=== PATIENT | female | born 1940 | race Caucasian/White ===

== ENCOUNTER 2018-04-01 06:36 | Day surgery (SDC) | payer MEDICARE, OTHER ==
[~2018-04-01 06:36] MED LIST: Acetaminophen 325 MG Tab PO SCH; Lactated Ringers 1,000 ML IV SCH; Lidocaine 1%/Sod Bicarbonate in NS 8.4% 1 ML Syringe IDERM PRN; Pregabalin 25 MG Cap PO SCH; Sodium Chloride 0.9% 10 ML Syringe FLUSH PRN; oxyCODONE ER 10 MG TAB.ER PO SCH
[2018-04-01] MEDS ORDERED: Vancomycin 1 GM SDV ONE (07:55)
[2018-04-01] MEDS ORDERED: Propofol 200 MG/20 ML SDV ONE (07:58)
[2018-04-01] MEDS ORDERED: fentaNYL 100 MCG/2 ML SDV ONE (07:59)
[2018-04-01] MEDS ORDERED: ceFAZolin 1 GM Vial ONE ×2 (08:03→08:21)
[2018-04-01] MEDS ORDERED: Lidocaine 1% 4 ML ONE (08:03)
[2018-04-01] MEDS ORDERED: Dexamethasone 4 MG/ML SDV ONE (08:03)
[2018-04-01] MEDS ORDERED: Ondansetron 4 MG/2 ML SDV ONE (08:03)
[2018-04-01] MEDS ORDERED: Iodine/Sodium Iodide 2% Tincture 30 ML Bottle ONE (08:21)
[2018-04-01] MEDS ORDERED: Bupivacaine 0.25% 30 ML SDV ONE ×2 (08:22)
[2018-04-01] MEDS ORDERED: EPINEPHrine 1 MG/ML SDV ONE (08:24)
[2018-04-01] MEDS ORDERED: Ropivacaine 0.5% 5 MG/ML 30 ML SDV ONE (08:24)
[2018-04-01] MEDS ORDERED: ePHEDrine/Normal Saline 25 MG/5 ML Syringe ONE ×2 (09:11→09:51)
[2018-04-01] MEDS: Iodine/Sodium Iodide 2% Tincture 30 ML Bottle ONE ×2 (09:21→09:48)
[2018-04-01] MEDS: Bupivacaine 0.25% 30 ML SDV ONE ×2 (09:21→09:55)
[2018-04-01] MEDS: ceFAZolin 1 GM Vial ONE ×2 (09:21→09:51)
[2018-04-01] MEDS: Morphine 8 MG, EPINEPHrine 0.3 MG, Cefuroxime 750 MG, Ketorolac 30 MG, Sodium Chloride ... ONE ×10 (09:22→09:54)
[2018-04-01] MEDS: Vancomycin 1 GM SDV ONE ×2 (09:23→09:57)
[2018-04-01] MEDS ORDERED: diphenhydrAMINE 50 MG/ML SDV IVPUSH PRN (10:05)
[2018-04-01] MEDS ORDERED: Ondansetron 4 MG/2 ML SDV IVPUSH PRN ×2 (10:05→10:30)
[2018-04-01] MEDS ORDERED: fentaNYL 100 MCG/2 ML SDV IVPUSH PRN (10:05)
[2018-04-01] MEDS: Triamcinolone Acetonide 40 MG/ML 1 ML MDV ONE ×2 (10:24→10:26)
[2018-04-01] MEDS ORDERED: Sennosides 8.6 MG Tab PO PRN (10:30)
[2018-04-01] MEDS ORDERED: Magnesium Hydroxide 400 MG/5 ML Susp 30 ML Cup PO PRN (10:30)
[2018-04-01] MEDS ORDERED: Ketorolac 15 MG/ML SDV IVPUSH PRN (10:30)
[2018-04-01] MEDS ORDERED: Bisacodyl 5 MG Tab PO PRN (10:30)
[2018-04-01] MEDS ORDERED: Cyclobenzaprine 10 MG Tab PO PRN (10:30)
[2018-04-01] MEDS ORDERED: Naloxone 0.4 MG/ML SDV IVPUSH PRN (10:30)
[2018-04-01] MEDS ORDERED: Morphine 2 MG/ML Syringe IVPUSH PRN (10:30)
--- NOTE | 2018-04-01 10:39 | PCM.POSTAN ---
POST ANESTHESIA ASSESSMENT - MENTAL STATUS Mental Status: Alert, Oriented - VITAL SIGNS Pulse Rate: 88 SaO2: 97 Resp Rate: 13 Blood Pressure: 116/58 Temperature: 36.6 C - RESPIRATORY Respiratory Status: Respiratory Rate WNL, Airway Patent, O2 Saturation Stable, Supplemental Oxygen - CARDIOVASCULAR CV Status: Pulse Rate WNL, Blood Pressure Stable - GASTROINTESTINAL GI Status: No Symptoms - PAIN Pain Score: 0 - POST OP HYDRATION Hydration Status: Adequate & Stable
--- NOTE | 2018-04-01 11:39 | PCM.SN ---
- Free Text/Narrative Note: Nancy is a 78 yo female patient of Dr. Shine who is post-operative day 0 of R TKA. Hospital medicine was consulted for post-operative medical care. At this time she is stable. Pain is controlled. She denies any chest pain, shortness of breath, palpitations, nausea, or vomiting. She carries a history of: heterozygous Factor V mutation, OA, GERD, HTN, varicose veins, osteopenia. She never smoked. She is a full code. Her PCP is KEVIN Bernardo.
--- NOTE | 2018-04-01 12:27 | CR ---
Right knee: AP and lateral views of the right knee were obtained. Comparison: Previous right knee radiographic study of 01/26/18. Knee prosthesis is seen. Components are aligned. Soft tissue air is noted from the surgical procedure. Vascular calcification is noted. Bony structures are osteopenic. Impression: 1. Satisfactory postoperative radiographic appearance of recently placed right knee prosthesis. Diagnostic code #2
--- NOTE | 2018-04-01 12:37 | PCM.OPNOTE ---
- General Post-Op/Procedure Note Date of Surgery/Procedure: 04/01/18 Operative Procedure(s): right total knee arthroplasty with left knee corticosteroid injection Pre Op Diagnosis: bilateral knee osteoarthritis Post-Op Diagnosis: Same Anesthesia Technique: Local, MAC, Spinal Primary Surgeon: Eugene Shine Anesthesia Provider: Alexis Baker Cadd Instructor: Heaven Miranda Cadd Instructor: Hailee Ferrell EBL in mLs: 10 Complications: None Condition: Good Free Text/Narrative:: Intake & Output 03/31/18 04/01/18 04/01/18 22:59 06:59 14:59 Intake Total 250 Balance 250 size 4 femur and tibia 13mm poly [id number]
[2018-04-01] MEDS: Acetaminophen/oxyCODONE 325-5 MG Tab PO PRN ×3 (13:46→23:30)
[2018-04-01] MEDS: ceFAZolin 2 GM in Premix Bag 1 BAG IV SCH ×2 (16:13→23:30)
[2018-04-01] MEDS: Docusate Sodium 100 MG Cap PO SCH (20:11)
[2018-04-02] MEDS: Acetaminophen/oxyCODONE 325-5 MG Tab PO PRN ×2 (05:58→11:04)
--- NOTE | 2018-04-02 06:17 | PCM.SN ---
- Free Text/Narrative Note: In to see Nancy this AM. She is sitting on the edge of bed eating breakfast. She is post-operative day 1 of right TKA with left knee steroid injection. She reports her pain is well controlled and she has been thrilled with her range of motion. She worked with PT/OT and they have cleared her for discharge home. She denies any chest pain, nausea, vomiting, palpitations, shortness of breath, dizziness, or headache. She is off of oxygen and has been urinating. No nursing concerns. Vital signs are reviewed and are stable. Physical exam is unremarkable with clear lung sounds, normal S1 and S2, regular rate and rhythm, soft abdomen that is nontender, and a bandage on the right leg that is intact and dry. She is neurovascularly intact with 2+ pulses noted in all extremities. Family is at bedside and neither the patient nor the family have any concerns. She has been utilizing her incentive spirometry and encouraged to continue this at home until she is more ambulatory. Past medical history is reviewed. Labs are reviewed and creatinine is noted to be 1.1 with a GFR of 48. Baseline GFR is >[address] Guzman as she is eating and drinking fine. He has no concerns with this. Will encourage to stay hydrated. Hemoglobin preop was 13.7 and today is 11.8. She appears to be doing well and no concerns are noted. She will be discharged home today pending primary team and PT/OT agreement.
[2018-04-02] MEDS: ceFAZolin 2 GM in Premix Bag 1 BAG IV SCH (08:53)
[2018-04-02] MEDS: Docusate Sodium 100 MG Cap PO SCH (08:55)
[2018-04-02] MEDS ORDERED: Cholecalciferol (Vitamin D3) 5,000 UNIT Tab PO SCH (09:00)
[2018-04-02] MEDS ORDERED: Apixaban 5 MG Tab PO SCH (09:00)
[2018-04-02] MEDS ORDERED: TRIAMCINOLONE ACETONIDE NASBOTH SCH (09:00)
[2018-04-02] MEDS ORDERED: Losartan 100 MG Tab PO SCH (09:00)
[2018-04-02] MEDS ORDERED: Pantoprazole 40 MG Tab.CR PO SCH (09:00)
--- NOTE | 2018-04-02 10:46 | PCM.PREANE ---
Preanesthetic Assessment - Procedure Proposed Procedure: Right TKR - Anesthesia/Transfusion/Family Hx Anesthesia History: Prior Anesthesia Without Reaction Family History of Anesthesia Reaction: No Transfusion History: No Prior Transfusion(s) Additional History: factor 5 leiden deficiency, hx blood clots in legs 1968-. - Review of Systems General: No Symptoms Pulmonary: Shortness of Breath (with walking) Cardiovascular: Other (HTN) Gastrointestinal: Other (GERD) Neurological: No Symptoms Other: Reports: None - Physical Assessment NPO Status Date: 03/31/18 NPO Status Time: 19:00 Pulse: 77 O2 Sat by Pulse Oximetry: 92 Respiratory Rate: 18 Blood Pressure: 137/61 Temperature: 36.7 C Vital Signs: Last Vital Signs Temp 36.7 C 04/02/18 06:03 Pulse 77 04/02/18 06:03 Resp 18 04/02/18 06:03 BP 137/61 04/02/18 08:54 Pulse Ox 92 L 04/02/18 06:03 Height: 1.65 m Weight: 99.337 kg ASA Class: 2 Mental Status: Alert & Oriented x3 Airway Class: Mallampati = 1 Dentition: Reports: Normal Dentition Thyro-Mental Finger Breadths: 3 Mouth Opening Finger Breadths: 3 ROM/Head Extension: Full Lungs: Clear to Auscultation, Normal Respiratory Effort Cardiovascular: Regular Rate, Regular Rhythm - Lab Values: Laboratory Last Values WBC 14.19 K/mm3 (3.98-10.04) H 04/02/18 05:44 RBC 4.01 M/mm3 (3.98-5.22) 04/02/18 05:44 Hgb 11.8 gm/L (11.2-15.7) 04/02/18 05:44 Hct 36.5 % (34.1-44.9) 04/02/18 05:44 MCV 91.0 fl (79.4-94.8) 04/02/18 05:44 MCH 29.4 pg (25.6-32.2) 04/02/18 05:44 MCHC 32.3 g/dl (32.2-35.5) 04/02/18 05:44 RDW Std Deviation 46.4 fL (36.4-46.3) H 04/02/18 05:44 Plt Count 205 K/mm3 (182-369) 04/02/18 05:44 MPV 10.9 fl (9.4-12.3) 04/02/18 05:44 Sodium 131 mEq/L (136-145) L 04/02/18 05:44 Potassium 5.0 mEq/L (3.5-5.1) 04/02/18 05:44 Chloride 99 mEq/L (98-107) 04/02/18 05:44 Carbon Dioxide 22 mEq/L (21-32) 04/02/18 05:44 Anion Gap 15.0 (5-15) 04/02/18 05:44 BUN 24 mg/dL (7-18) H 04/02/18 05:44 Creatinine 1.1 mg/dL (0.55-1.02) H 04/02/18 05:44 Est Cr Clr Drug Dosing 37.93 mL/min 04/02/18 05:44 Estimated GFR (MDRD) 48 mL/min (>60) 04/02/18 05:44 BUN/Creatinine Ratio 21.8 (14-18) H 04/02/18 05:44 Glucose 155 mg/dL (83-115) H 04/02/18 05:44 Calcium 9.4 mg/dL (8.5-10.1) 04/02/18 05:44 Total Bilirubin 0.3 mg/dL (0.2-1.0) 04/02/18 05:44 AST 16 U/L (15-37) 04/02/18 05:44 ALT 19 U/L (14-59) 04/02/18 05:44 Alkaline Phosphatase 52 U/L (46-116) 04/02/18 05:44 Total Protein 7.0 g/dl (6.4-8.2) 04/02/18 05:44 Albumin 3.4 g/dl (3.4-5.0) 04/02/18 05:44 Globulin 3.6 gm/dL 04/02/18 05:44 Albumin/Globulin Ratio 0.9 (1-2) L 04/02/18 05:44 - Allergies Allergies/Adverse Reactions: Allergies Allergy/AdvReac Type Severity Reaction Status Date / Time No Known Allergies Allergy Verified 03/31/18 12:09 - Blood Blood Available: No Product(s) Available: None - Anesthesia Plan Pre-Op Medication Ordered: None - Acknowledgements Anesthesia Type Planned: Spinal, Regional Block (spinal with post-op right adductor canal block) Pt an Appropriate Candidate for the Planned Anesthesia: Yes Alternatives and Risks of Anesthesia Discussed w Pt/Guardian: Yes Pt/Guardian Understands and Agrees with Anesthesia Plan: Yes PreAnesthesia Questionnaire HEENT History: Reports: Cataract, Impaired Vision, Other (See Below) Other HEENT History: postnasal drip, wears glasses, has hearing aids Cardiovascular History: Reports: Blood Clots/VTE/DVT, Hypertension, Other (See Below) Other Cardiovascular History: varicose veins Respiratory History: Reports: None Gastrointestinal History: Reports: GERD Genitourinary History: Reports: None [employer] History: Reports: Musculoskeletal History: Reports: Arthritis, Other (See Below) Other Musculoskeletal History: recent history of falls, lower leg bone disorder , knee pain Neurological History: Reports: None Psychiatric History: Reports: None Endocrine/Metabolic History: Reports: Obesity/BMI 30+ Other Hematologic History: leiden factor V Immunologic History: Reports: None Oncologic (Cancer) History: Reports: None Dermatologic History: Reports: Other (See Below) Other Dermatologic History: phlebitis to leg - Past Surgical History Head Surgeries/Procedures: Reports: None Cardiovascular Surgical History: Reports: None Respiratory Surgical History: Reports: None GI Surgical History: Reports: None Female Surgical History: Reports: D&C Male Surgical History: Reports: None Endocrine Surgical History: Reports: None Neurological Surgical History: Reports: None Musculoskeletal Surgical History: Reports: None Oncologic Surgical History: Reports: None - SUBSTANCE USE Smoking Status *Q: Never Smoker Recreational Drug Use History: No - HOME MEDS Home Medications: Home Meds Cholecalciferol (Vitamin D3) [Vitamin D3] 5,000 units PO DAILY 03/31/18 [History ] Losartan [Cozaar] 100 mg PO DAILY 03/31/18 [History] Omeprazole 20 mg PO DAILY 03/31/18 [History] Triamcinolone Acetonide [Nasacort] 1 dose NASBOTH DAILY 03/31/18 [History] Acetaminophen [Tylenol] 650 g PO Q4H PRN #0 04/02/18 [Rx] Acetaminophen/oxyCODONE [Percocet 325-5 MG] 1 - 2 tab PO Q6H PRN #60 tablet [Rx] Apixaban [Eliquis] 2.5 mg PO BID #60 tablet 04/02/18 [Rx] Bisacodyl [Dulcolax] 5 mg PO DAILY PRN tablet 04/02/18 [Rx] Cyclobenzaprine [Flexeril] 10 mg PO TID PRN #40 tablet 04/02/18 [Rx] Docusate Sodium [Colace] 100 mg PO BID cap 04/02/18 [Rx] Magnesium Hydroxide [Milk of Magnesia] 30 ml PO BID PRN cup 04/02/18 [Rx] Sennosides [Senna] 8.6 mg PO BID PRN tablet 04/02/18 [Rx] - CURRENT (IN HOUSE) MEDS Current Meds: Current Medications Apixaban (Eliquis) 2.[address] [facility] Last Admin: 04/02/18 08:56 Dose: 2.5 mg Bisacodyl (Dulcolax) 5 mg PO DAILY PRN PRN Reason: Constipation Cholecalciferol (Vitamin D3) 5,[address] [facility] Last Admin: 04/02/18 08:53 Dose: 5,000 unit Cyclobenzaprine HCl (Flexeril) 10 mg PO TID PRN PRN Reason: Spasms Docusate Sodium (Colace) [address] [facility] Last Admin: 04/02/18 08:55 Dose: 100 mg Ketorolac Tromethamine (Toradol) 15 mg IVPUSH Q6H PRN PRN Reason: Pain Losartan Potassium (Cozaar) [address] [facility] Last Admin: 04/02/18 08:54 Dose: 100 mg Magnesium Hydroxide (Milk Of Magnesia) 30 ml PO BID PRN PRN Reason: Constipation Morphine Sulfate (Morphine) 2 mg IVPUSH Q2H PRN PRN Reason: Breakthrough Pain Naloxone HCl (Narcan) 0.1 mg IVPUSH Q5M PRN PRN Reason: Oversedation Ondansetron HCl (Zofran) 4 mg IVPUSH Q6H PRN PRN Reason: Nausea/Vomiting Oxycodone/Acetaminophen (Percocet 325-5 Mg) 1 - 2 tab PO Q4H PRN PRN Reason: Pain Last Admin: 04/02/18 05:58 Dose: 2 tab Pantoprazole Sodium (Protonix) [address] [facility] Last Admin: 04/02/18 08:55 Dose: 40 mg Triamcinolone Acetonide [Nasacort] 1 Dose [address] [facility] Last Admin: 04/02/18 08:56 Dose: Not Given Senna (Senna) 8.6 mg PO BID PRN PRN Reason: Constipation Discontinued Medications Acetaminophen (Tylenol) 975 mg PO ONETIME TOR Stop: 04/01/18 18:00 Last Admin: 04/01/18 07:00 Dose: 975 mg Bupivacaine HCl (Marcaine 0.25%) Confirm Administered Dose 30 ml .ROUTE .STK- MED ONE Stop: 04/01/18 07:57 Last Admin: 04/01/18 09:55 Dose: 30 ml Bupivacaine HCl (Marcaine 0.25%) Confirm Administered Dose 30 ml .ROUTE .STK- MED ONE Stop: 04/01/18 08:23 Bupivacaine HCl (Marcaine 0.25%) Confirm Administered Dose 30 ml .ROUTE .STK- MED ONE Stop: 04/01/18 08:23 Cefazolin Sodium (Ancef) Confirm Administered Dose 2 gm .ROUTE .STK-MED ONE Stop: 04/01/18 07:56 Last Admin: 04/01/18 09:51 Dose: 2 gm Cefazolin Sodium (Ancef) Confirm Administered Dose 2 gm .ROUTE .STK-MED ONE Stop: 04/01/18 08:04 Cefazolin Sodium (Ancef) Confirm Administered Dose 2 gm .ROUTE .STK-MED ONE Stop: 04/01/18 08:22 Morphine Sulfate 8 mg/Epinephrine HCl 0.3 mg/Cefuroxime Sodium 750 mg/Ketorolac Tromethamine 30 mg/Sodium Chloride 27.9 ml 0 mg .XX ONETIME ONE Stop: 04/01/18 08:31 Last Admin: 04/01/18 09:54 Dose: 788.3 mg Dexamethasone (Dexamethasone) Confirm Administered Dose 8 mg .ROUTE .STK-MED ONE Stop: 04/01/18 08:04 Diphenhydramine HCl (Benadryl) 25 mg IVPUSH Q6H PRN PRN Reason: Pruritis Stop: 04/01/18 13:00 Ephedrine Sulfate (Ephedrine In Ns) Confirm Administered Dose 25 mg .ROUTE .STK- MED ONE Stop: 04/01/18 09:12 Ephedrine Sulfate (Ephedrine In Ns) Confirm Administered Dose 25 mg .ROUTE .STK- MED ONE Stop: 04/01/18 09:52 Epinephrine HCl (Adrenalin) Confirm Administered Dose 1 mg .ROUTE .STK-MED ONE Stop: 04/01/18 08:25 Fentanyl (Sublimaze) Confirm Administered Dose 100 mcg .ROUTE .STK-MED ONE Stop: 04/01/18 08:00 Fentanyl (Sublimaze) 50 mcg IVPUSH Q5M PRN PRN Reason: Pain Stop: 04/01/18 13:00 Lactated Ringer's (Ringers, Lactated) 1,000 mls @ 125 mls/hr IV ASDIRECTED [facility] Stop: 04/01/18 23:00 Last Admin: 04/01/18 07:20 Dose: 125 mls/hr Cefazolin Sodium/Dextrose 2 gm (/ Premix) 50 mls @ 100 mls/hr IV Q8H [facility] Stop: 04/02/18 08:59 Last Admin: 04/02/18 08:53 Dose: 100 mls/hr Lidocaine HCl (Xylocaine-Mpf 1%) Confirm Administered Dose 4 mls @ as directed .ROUTE .STK-MED ONE Stop: 04/01/18 08:04 Iodine (Iodine 2% Mild Tincture) Confirm Administered Dose 30 ml .ROUTE .STK- MED ONE Stop: 04/01/18 07:57 Last Admin: 04/01/18 09:48 Dose: 18 ml Iodine (Iodine 2% Mild Tincture) Confirm Administered Dose 30 ml .ROUTE .STK- MED ONE Stop: 04/01/18 08:22 Lidocaine/Sodium Bicarbonate (Buffered Lidocaine 1% In Ns 8.4%) 0.25 ml IDERM ONETIME PRN PRN Reason: Prior to IV Start Stop: 04/01/18 18:00 Ondansetron HCl (Zofran) Confirm Administered Dose 4 mg .ROUTE .STK-MED ONE Stop: 04/01/18 08:04 Ondansetron HCl (Zofran) 4 mg IVPUSH ONETIME PRN PRN Reason: Nausea/Vomiting Stop: 04/01/18 13:00 Oxycodone HCl (Oxycontin) [address] [facility] Stop: 04/01/18 18:00 Last Admin: 04/01/18 06:59 Dose: 10 mg Pregabalin (Lyrica) [address] [facility] Stop: 04/01/18 18:00 Last Admin: 04/01/18 06:59 Dose: 50 mg Propofol (Diprivan 20 Ml) Confirm Administered Dose 600 mg .ROUTE .STK-MED ONE Stop: 04/01/18 07:59 Ropivacaine (Naropin 0.5%) Confirm Administered Dose 30 ml .ROUTE .STK-MED ONE Stop: 04/01/18 08:25 Sodium Chloride (Saline Flush) 10 ml FLUSH ASDIRECTED PRN PRN Reason: Keep Vein Open Stop: 04/01/18 18:00 Tranexamic Acid (Cyklokapron) Confirm Administered Dose 1,000 mg .ROUTE .ST- MED ONE Stop: 04/01/18 07:56 Last Admin: 04/01/18 09:56 Dose: 1,000 mg Tranexamic Acid (Cyklokapron) Confirm Administered Dose 1,000 mg .ROUTE .STK- MED ONE Stop: 04/01/18 08:22 Triamcinolone Acetonide (Kenalog-40) Confirm Administered Dose 80 mg .ROUTE .STK -MED ONE Stop: 04/01/18 08:22 Vancomycin HCl (Vancomycin) Confirm Administered Dose 1 gm .ROUTE .STK-MED ONE Stop: 04/01/18 07:56 Vancomycin HCl (Vancomycin) Confirm Administered Dose 1 gm .ROUTE .STK-MED ONE Stop: 04/01/18 08:22 Last Admin: 04/01/18 09:57 Dose: 1 gm
--- NOTE | 2018-04-02 11:12 | PCM48HPAN ---
Post Anesthesia Note - EVALUATION WITHIN 48HRS OF ANESTHETIC Vital Signs in Normal Range: Yes Patient Participated in Evaluation: Yes Respiratory Function Stable: Yes Airway Patent: Yes Cardiovascular Function Stable: Yes Hydration Status Stable: Yes Pain Control Satisfactory: Yes Nausea and Vomiting Control Satisfactory: Yes Mental Status Recovered: Yes
--- NOTE | 2018-04-02 12:44 | PCM.SURGPN ---
- General Info Date of Service: 04/02/18 POD#: 1 Functional Status: Reports: Pain Controlled, Tolerating Diet, Ambulating, Urinating, Incentive Spirometry, Other (The pt states she would like to return to her home. The family has discussed discharge options, including discharge to [facility], with social sciences chair and the pt has chosen to d/c to home.) - Patient Data Vitals - Most Recent: Last Vital Signs Temp 98.1 F 04/02/18 10:46 Pulse 77 04/02/18 10:46 Resp 18 04/02/18 10:46 BP 137/61 04/02/18 10:46 Pulse Ox 92 L 04/02/18 10:46 Weight - Most Recent: 219 lb I&O - Last 24 Hours: Intake & Output 04/01/18 04/02/18 04/02/18 22:59 06:59 14:59 Intake Total 120 108 Balance 120 108 Lab Results Last 24 Hrs: Laboratory Results - last 24 hr 04/02/18 04/02/18 Range/Units 05:44 05:44 WBC 14.19 H (3.98-10.04) K/mm3 RBC 4.01 (3.98-5.22) M/mm3 Hgb 11.8 (11.2-15.7) gm/L Hct 36.5 (34.1-44.9) % MCV 91.0 (79.4-94.8) fl MCH 29.4 (25.6-32.2) pg MCHC 32.3 (32.2-35.5) g/dl RDW Std Deviation 46.4 H (36.4-46.3) fL Plt Count 205 (182-369) K/mm3 MPV 10.9 (9.4-12.3) fl Sodium 131 L (136-145) mEq/L Potassium 5.0 (3.5-5.1) mEq/L Chloride 99 (98-107) mEq/L Carbon Dioxide 22 (21-32) mEq/L Anion Gap 15.0 (5-15) BUN 24 H (7-18) mg/dL Creatinine 1.1 H (0.55-1.02) mg/dL Est Cr Clr Drug Dosing 37.93 mL/min Estimated GFR (MDRD) 48 (>60) mL/min BUN/Creatinine Ratio 21.8 H (14-18) Glucose 155 H (83-115) mg/dL Calcium 9.4 (8.5-10.1) mg/dL Total Bilirubin 0.3 (0.2-1.0) mg/dL AST 16 (15-37) U/L ALT 19 (14-59) U/L Alkaline Phosphatase 52 (46-116) U/L Total Protein 7.0 (6.4-8.2) g/dl Albumin 3.4 (3.4-5.0) g/dl Globulin 3.6 gm/dL Albumin/Globulin Ratio 0.9 L (1-2) Med Orders - Current: Current Medications Apixaban (Eliquis) 2.5 mg PO BID [facility] Last Admin: 04/02/18 08:56 Dose: 2.5 mg Bisacodyl (Dulcolax) 5 mg PO DAILY PRN PRN Reason: Constipation Cholecalciferol (Vitamin D3) 5,000 unit PO DAILY [facility] Last Admin: 04/02/18 08:53 Dose: 5,000 unit Cyclobenzaprine HCl (Flexeril) 10 mg PO TID PRN PRN Reason: Spasms Docusate Sodium (Colace) 100 mg PO BID [facility] Last Admin: 04/02/18 08:55 Dose: 100 mg Ketorolac Tromethamine (Toradol) 15 mg IVPUSH Q6H PRN PRN Reason: Pain Losartan Potassium (Cozaar) 100 mg PO DAILY [facility] Last Admin: 04/02/18 08:54 Dose: 100 mg Magnesium Hydroxide (Milk Of Magnesia) 30 ml PO BID PRN PRN Reason: Constipation Morphine Sulfate (Morphine) 2 mg IVPUSH Q2H PRN PRN Reason: Breakthrough Pain Naloxone HCl (Narcan) 0.1 mg IVPUSH Q5M PRN PRN Reason: Oversedation Ondansetron HCl (Zofran) 4 mg IVPUSH Q6H PRN PRN Reason: Nausea/Vomiting Oxycodone/Acetaminophen (Percocet 325-5 Mg) 1 - 2 tab PO Q4H PRN PRN Reason: Pain Last Admin: 04/02/18 11:04 Dose: 2 tab Pantoprazole Sodium (Protonix) 40 mg PO DAILY [facility] Last Admin: 04/02/18 08:55 Dose: 40 mg Triamcinolone Acetonide [Nasacort] 1 Dose 0 each NASBOTH DAILY [facility] Last Admin: 04/02/18 08:56 Dose: Not Given Senna (Senna) 8.6 mg PO BID PRN PRN Reason: Constipation Discontinued Medications Acetaminophen (Tylenol) 975 mg PO ONETIME [facility] Stop: 04/01/18 18:00 Last Admin: 04/01/18 07:00 Dose: 975 mg Bupivacaine HCl (Marcaine 0.25%) Confirm Administered Dose 30 ml .ROUTE .STK- MED ONE Stop: 04/01/18 07:57 Last Admin: 04/01/18 09:55 Dose: 30 ml Bupivacaine HCl (Marcaine 0.25%) Confirm Administered Dose 30 ml .ROUTE .STK- MED ONE Stop: 04/01/18 08:23 Bupivacaine HCl (Marcaine 0.25%) Confirm Administered Dose 30 ml .ROUTE .STK- MED ONE Stop: 04/01/18 08:23 Cefazolin Sodium (Ancef) Confirm Administered Dose 2 gm .ROUTE .STK-MED ONE Stop: 04/01/18 07:56 Last Admin: 04/01/18 09:51 Dose: 2 gm Cefazolin Sodium (Ancef) Confirm Administered Dose 2 gm .ROUTE .STK-MED ONE Stop: 04/01/18 08:04 Cefazolin Sodium (Ancef) Confirm Administered Dose 2 gm .ROUTE .STK-MED ONE Stop: 04/01/18 08:22 Morphine Sulfate 8 mg/Epinephrine HCl 0.3 mg/Cefuroxime Sodium 750 mg/Ketorolac Tromethamine 30 mg/Sodium Chloride 27.9 ml 0 mg .XX ONETIME ONE Stop: 04/01/18 08:31 Last Admin: 04/01/18 09:54 Dose: 788.3 mg Dexamethasone (Dexamethasone) Confirm Administered Dose 8 mg .ROUTE .STK-MED ONE Stop: 04/01/18 08:04 Diphenhydramine HCl (Benadryl) 25 mg IVPUSH Q6H PRN PRN Reason: Pruritis Stop: 04/01/18 13:00 Ephedrine Sulfate (Ephedrine In Ns) Confirm Administered Dose 25 mg .ROUTE .STK- MED ONE Stop: 04/01/18 09:12 Ephedrine Sulfate (Ephedrine In Ns) Confirm Administered Dose 25 mg .ROUTE .STK- MED ONE Stop: 04/01/18 09:52 Epinephrine HCl (Adrenalin) Confirm Administered Dose 1 mg .ROUTE .STK-MED ONE Stop: 04/01/18 08:25 Fentanyl (Sublimaze) Confirm Administered Dose 100 mcg .ROUTE .STK-MED ONE Stop: 04/01/18 08:00 Fentanyl (Sublimaze) 50 mcg IVPUSH Q5M PRN PRN Reason: Pain Stop: 04/01/18 13:00 Lactated Ringer's (Ringers, Lactated) 1,000 mls @ 125 mls/hr IV ASDIRECTED [facility] Stop: 04/01/18 23:00 Last Admin: 04/01/18 07:20 Dose: 125 mls/hr Cefazolin Sodium/Dextrose 2 gm (/ Premix) 50 mls @ 100 mls/hr IV Q8H [facility] Stop: 04/02/18 08:59 Last Admin: 04/02/18 08:53 Dose: 100 mls/hr Lidocaine HCl (Xylocaine-Mpf 1%) Confirm Administered Dose 4 mls @ as directed .ROUTE .ST-MED ONE Stop: 04/01/18 08:04 Iodine (Iodine 2% Mild Tincture) Confirm Administered Dose 30 ml .ROUTE .STK- MED ONE Stop: 04/01/18 07:57 Last Admin: 04/01/18 09:48 Dose: 18 ml Iodine (Iodine 2% Mild Tincture) Confirm Administered Dose 30 ml .ROUTE .STK- MED ONE Stop: 04/01/18 08:22 Lidocaine/Sodium Bicarbonate (Buffered Lidocaine 1% In Ns 8.4%) 0.25 ml IDERM ONETIME PRN PRN Reason: Prior to IV Start Stop: 04/01/18 18:00 Ondansetron HCl (Zofran) Confirm Administered Dose 4 mg .ROUTE .STK-MED ONE Stop: 04/01/18 08:04 Ondansetron HCl (Zofran) 4 mg IVPUSH ONETIME PRN PRN Reason: Nausea/Vomiting Stop: 04/01/18 13:00 Oxycodone HCl (Oxycontin) 10 mg PO ONETIME [facility] Stop: 04/01/18 18:00 Last Admin: 04/01/18 06:59 Dose: 10 mg Pregabalin (Lyrica) 50 mg PO ONETIME [facility] Stop: 04/01/18 18:00 Last Admin: 04/01/18 06:59 Dose: 50 mg Propofol (Diprivan 20 Ml) Confirm Administered Dose 600 mg .ROUTE .STK-MED ONE Stop: 04/01/18 07:59 Ropivacaine (Naropin 0.5%) Confirm Administered Dose 30 ml .ROUTE .STK-MED ONE Stop: 04/01/18 08:25 Sodium Chloride (Saline Flush) 10 ml FLUSH ASDIRECTED PRN PRN Reason: Keep Vein Open Stop: 04/01/18 18:00 Tranexamic Acid (Cyklokapron) Confirm Administered Dose 1,000 mg .ROUTE .[facility]- MED ONE Stop: 04/01/18 07:56 Last Admin: 04/01/18 09:56 Dose: 1,000 mg Tranexamic Acid (Cyklokapron) Confirm Administered Dose 1,000 mg .ROUTE .[facility] ONE Stop: 04/01/18 08:22 Triamcinolone Acetonide (Kenalog-40) Confirm Administered Dose 80 mg .ROUTE .ST -MED ONE Stop: 04/01/18 08:22 Vancomycin HCl (Vancomycin) Confirm Administered Dose 1 gm .ROUTE .ST-MED ONE Stop: 04/01/18 07:56 Vancomycin HCl (Vancomycin) Confirm Administered Dose 1 gm .ROUTE .[facility]-MED ONE Stop: 04/01/18 08:22 Last Admin: 04/01/18 09:57 Dose: 1 gm - Exam Wound/Incisions: Dressing Dry and Intact General: Alert, Cooperative, No Acute Distress Lungs: Normal Respiratory Effort Extremities: Other (NVS intact. Bryce's negative.) - Problem List Review Problem List Initiated/Reviewed/Updated: Yes - My Orders Last 24 Hours: Active Orders 24 hr Category Date Time Status Ready for Discharge [RC] PER UNIT ROUTINE Care 04/02/18 10:08 Active Apixaban [Eliquis] Med 04/02/18 09:00 Active 2.5 mg PO BID Cholecalciferol (Vitamin D3) [Vitamin D3] Med 04/02/18 09:00 Active 5,000 unit PO DAILY Docusate Sodium [Colace] Med 04/01/18 21:00 Active 100 mg PO BID Losartan [Cozaar] Med 04/02/18 09:00 Active 100 mg PO DAILY Pantoprazole [ProTONIX] Med 04/02/18 09:00 Active 40 mg PO DAILY Patient's Own Medication [Ptom] Med 04/02/18 09:00 Active 0 each NASBOTH DAILY Medication Orders Apixaban (Eliquis) 2.5 mg PO BID [facility] Last Admin: 04/02/18 08:56 Dose: 2.5 mg Bisacodyl (Dulcolax) 5 mg PO DAILY PRN PRN Reason: Constipation Cholecalciferol (Vitamin D3) 5,000 unit PO DAILY [facility] Last Admin: 04/02/18 08:53 Dose: 5,000 unit Cyclobenzaprine HCl (Flexeril) 10 mg PO TID PRN PRN Reason: Spasms Docusate Sodium (Colace) 100 mg PO BID [facility] Last Admin: 04/02/18 08:55 Dose: 100 mg Admin: 04/01/18 20:11 Dose: 100 mg Ketorolac Tromethamine (Toradol) 15 mg IVPUSH Q6H PRN PRN Reason: Pain Losartan Potassium (Cozaar) 100 mg PO DAILY [facility] Last Admin: 04/02/18 08:54 Dose: 100 mg Magnesium Hydroxide (Milk Of Magnesia) 30 ml PO BID PRN PRN Reason: Constipation Morphine Sulfate (Morphine) 2 mg IVPUSH Q2H PRN PRN Reason: Breakthrough Pain Naloxone HCl (Narcan) 0.1 mg IVPUSH Q5M PRN PRN Reason: Oversedation Ondansetron HCl (Zofran) 4 mg IVPUSH Q6H PRN PRN Reason: Nausea/Vomiting Oxycodone/Acetaminophen (Percocet 325-5 Mg) 1 - 2 tab PO Q4H PRN PRN Reason: Pain Last Admin: 04/02/18 11:04 Dose: 2 tab Admin: 04/02/18 05:58 Dose: 2 tab Admin: 04/01/18 23:30 Dose: 2 tab Admin: 04/01/18 18:17 Dose: 2 tab Admin: 04/01/18 13:46 Dose: 2 tab Pantoprazole Sodium (Protonix) 40 mg PO DAILY [facility] Last Admin: 04/02/18 08:55 Dose: 40 mg Triamcinolone Acetonide [Nasacort] 1 Dose 0 each NASBOTH DAILY [facility] Last Admin: 04/02/18 08:56 Dose: Senna (Senna) 8.6 mg PO BID PRN PRN Reason: Constipation - Assessment Assessment (Free Text/Narrative):: POD#1 - s/p right TKA with left knee cortisone injection - Plan Plan (Free Text/Narrative):: 1. Discharge to home today. 2. Eliquis BID due to hx Factor V Leiden mutation. 3. Outpatient therapy. 4. Hgb 11.8 today. The pt was evaluated by Dr. Shine today.
--- NOTE | 2018-04-07 15:43 | OR ---
DATE OF OPERATION: 04/01/2018 SURGEON: Eugene Shine MD OPERATION PERFORMED: Right total knee arthroplasty with left knee corticosteroid injection. PREOPERATIVE DIAGNOSIS: Bilateral knee osteoarthrosis. POSTOPERATIVE DIAGNOSIS: Bilateral knee osteoarthrosis. ANESTHESIA: Local MAC with spinal. ANESTHESIA PROVIDER: Alexis Baker. CONSTRUCTION TECHNICIAN: Heaven Miranda PA-C and Hailee Ferrell LPN. ESTIMATED BLOOD LOSS: 10 mL. COMPLICATIONS: None. CONDITION: Stable. IMPLANTS: 1. Mills size 4 cemented PS femur. 2. Mills size 4 cemented universal tibial base plate. 3. Mills size 4, 13 mm polyethylene PS insert. 4. Mills size 32 x 10 mm cemented asymmetric patella. DESCRIPTION OF PROCEDURE: The patient was identified in the preop holding area. Proper site was marked and identified by the surgeon. The patient was taken back to the operating theater where after adequate anesthesia, the patient's right lower extremity had a nonsterile tourniquet applied and was then sterilely prepped and draped in the usual sterile fashion. OR time-out was performed. The patient received 2 g IV Ancef. Right lower extremity was then exsanguinated and tourniquet was insufflated to 250 mmHg. Standard medial parapatellar incision was made. Medial parapatellar arthrotomy was created. Deep fibers of the MCL were raised, but stopping short since the patient had severe valgus deformity. Anterior fat pad was resected. At this time, attention was turned to patella. Patella measured a 22 and was resected to a 13 for a 32 x 10 mm patella. At this time, attention was turned to the femur. Distal femoral drill hole was then drilled and the intramedullary distal femoral cutting guide was then placed. A 10 mm was resected off the distal femur secondary to the patient's large defect on the lateral femoral condyle. At this time, sizing guide was placed and it was found to be a size 4. Epicondylar access holes were drilled using [place]ites[place] lines and epicondyles as reference making sure to externally rotate it as she did have severe valgus deformity. At this time, the 4-in-1 cutting block for size 4 was placed. Anterior and posterior chamfer cuts were then completed. The box cut was then completed at this time as well. Attention was turned to the tibia. The posterior and mediolateral retractors were placed and the tibial cutting guide was placed in the old footprint of the ACL. At this time, I measured 2 mm off the posterolateral defect which was very large. There was noted to be a large resection, so I did bring it up 4 mm and did resection. There was only a very small part not resected in the posterolateral tibia, but otherwise there was good clean resection. It was decided we would not need an augment at this time. At this time, posterior osteophytes were removed as well as mediolateral meniscus. Size 4 tibial base plate was found to have adequate coverage. The trial implants were then placed and a 13 mm polyethylene trial was placed. The patient's knee had full extension as well as flexion. There were no signs of varus valgus instability. All cut surfaces were irrigated with pulse lavage irrigation with Ancef and then completely dried. Cement was mixed on the back table. At this time, size 4 universal tibial base plate was cemented into place and the size 4 femur was cemented into place. The 13 mm PS polyethylene was then impacted into place and the post for the PS polyethylene was impacted into place. The patient's knee was brought into full extension and 32 x 10 mm patella was cemented into place. All excess cement was removed. At this time, 1 L dilute Betadine solution was irrigated through the knee along with 3 L pulse lavage irrigation with Ancef. Topical tranexamic acid as well as vancomycin powder was placed as well as a periarticular injection. A #2 barbed suture was used for closure of medial parapatellar arthrotomy. A 2-0 Vicryl was used subcutaneously and Prineo was used for the skin. The patient had a sterile soft dressing applied. After this was completed, 2 mL of 40 mg Kenalog and 4 mL of 0.25% Marcaine was injected into the left knee. The patient tolerated it well and was sent to PACU in stable condition. MMHENRI /[id number]
== END 2018-04-02 11:25 | disposition home or self-care (01) ==
LOC: JD.SDS 06:36 → JD.MS 06:38 → JD.SDS 04-02 11:25
PROVIDERS: ATTEND Orthopaedic Surgery
DX: M17.0 Bilateral primary osteoarthritis of knee (principal); M25.761 Osteophyte, right knee; I10 Essential (primary) hypertension; E66.9 Obesity, unspecified; Z68.37 Body mass index [BMI] 37.0-37.9, adult; K21.9 Gastro-esophageal reflux disease without esophagitis; D68.51 Activated protein C resistance; Z79.899 Other long term (current) drug therapy
CPT/HCPCS: 20610; 27447; 36415; 73560; 80053; 85027; 97110; 97116; 97161; 97165; 97535; A9270; C1713; C1776; J0171; J0690; J0697; J1100; J1885; J2270; J2405; J2704; J2795; J3010; J3301; J3370; J3490; J7050; J7120; 01402; J2001

== ENCOUNTER 2018-11-23 06:37 | Day surgery (SDC) | payer MEDICARE, OTHER ==
[2018-11-23] MEDS ORDERED: Propofol 200 MG/20 ML SDV ONE (06:53)
[2018-11-23] MEDS ORDERED: ceFAZolin 1 GM Vial ONE ×2 (06:53→06:57)
[2018-11-23] MEDS ORDERED: fentaNYL 100 MCG/2 ML SDV ONE (06:53)
[2018-11-23] MEDS ORDERED: Vancomycin 1 GM SDV ONE ×2 (06:57→07:36)
[2018-11-23] MEDS ORDERED: Bupivacaine 0.25% 10 ML SDV ONE (06:57)
[2018-11-23] MEDS ORDERED: Iodine/Sodium Iodide 2% Tincture 30 ML Bottle ONE (06:57)
--- NOTE | 2018-11-23 07:08 | PCM.PREANE ---
Preanesthetic Assessment - Anesthesia/Transfusion/Family Hx Anesthesia History: Prior Anesthesia Without Reaction Family History of Anesthesia Reaction: No Transfusion History: No Prior Transfusion(s) - Review of Systems General: No Symptoms, Other (factor V Leiden deficiency) Pulmonary: No Symptoms Cardiovascular: No Symptoms, Other (HTN) Gastrointestinal: Other (GERD controlled with diet) Neurological: Tingling (in feet) Other: Reports: Sinus Problem (allergies ) - Physical Assessment NPO Status Date: 11/22/18 NPO Status Time: 21:00 Weight: 97.2 kg ASA Class: 2 Mental Status: Alert & Oriented x3 Airway Class: Mallampati = 2 Dentition: Reports: Normal Dentition Thyro-Mental Finger Breadths: 3 Mouth Opening Finger Breadths: 3 ROM/Head Extension: Full Lungs: Clear to Auscultation, Normal Respiratory Effort Cardiovascular: Regular Rate, Regular Rhythm - Lab Values: Laboratory Last Values MRSA (PCR) Negative 11/11/18 12:35 - Allergies Allergies/Adverse Reactions: Allergies Allergy/AdvReac Type Severity Reaction Status Date / Time No Known Allergies Allergy Verified 11/20/18 10:46 - Blood Blood Available: No Product(s) Available: None - Anesthesia Plan Pre-Op Medication Ordered: None - Acknowledgements Anesthesia Type Planned: Spinal Pt an Appropriate Candidate for the Planned Anesthesia: Yes Alternatives and Risks of Anesthesia Discussed w Pt/Guardian: Yes Pt/Guardian Understands and Agrees with Anesthesia Plan: Yes PreAnesthesia Questionnaire HEENT History: Reports: Hard of Hearing, Impaired Vision, Other (See Below) Other HEENT History: Post nasal discharge Cardiovascular History: Reports: Hypertension, Other (See Below) Other Cardiovascular History: Varicose Veins Respiratory History: Reports: None Gastrointestinal History: Reports: GERD Genitourinary History: Reports: None LENS MOLDER History: Reports: Musculoskeletal History: Reports: Arthritis, Osteoarthritis Other Musculoskeletal History: recent history of falls, lower leg bone disorder , knee pain Neurological History: Reports: None Psychiatric History: Reports: None Endocrine/Metabolic History: Reports: Obesity/BMI 30+ Hematologic History: Reports: Other (See Below) Other Hematologic History: Heterozygous Factor V Leiden Deficiency Immunologic History: Reports: None Oncologic (Cancer) History: Reports: None Dermatologic History: Reports: Other (See Below) Other Dermatologic History: States she has had Phlebitis of her lower leg in the past. - Past Surgical History HEENT Surgical History: Reports: Cataract Surgery, Tonsillectomy Cardiovascular Surgical History: Reports: None Respiratory Surgical History: Reports: None GI Surgical History: Reports: None Female Surgical History: Reports: None Endocrine Surgical History: Reports: None Neurological Surgical History: Reports: None Musculoskeletal Surgical History: Reports: Knee Replacement, Other (See Below) Other Musculoskeletal Surgeries/Procedures:: RTKA 04/01/2018 - SUBSTANCE USE Smoking Status *Q: Never Smoker Second Hand Smoke Exposure: No Recreational Drug Use History: No - HOME MEDS Home Medications: Home Meds Cholecalciferol (Vitamin D3) [Vitamin D3] 5,000 units PO DAILY 03/31/18 [History ] Losartan [Cozaar] 50 mg PO DAILY 03/31/18 [History] Omeprazole 20 mg PO DAILY 03/31/18 [History] Triamcinolone Acetonide [Nasacort] 1 dose NASBOTH DAILY 03/31/18 [History] Acetaminophen/oxyCODONE [Percocet 325-5 MG] 1 - 2 tab PO Q6H PRN #60 tablet [Rx] Bisacodyl [Dulcolax] 5 mg PO DAILY PRN tablet 04/02/18 [Rx] Cyclobenzaprine [Flexeril] 10 mg PO TID PRN #40 tablet 04/02/18 [Rx] Magnesium Hydroxide [Milk of Magnesia] 30 ml PO BID PRN cup 04/02/18 [Rx] Sennosides [Senna] 8.6 mg PO BID PRN tablet 04/02/18 [Rx] Acetaminophen [Tylenol] 650 mg PO Q4H PRN 11/20/18 [History] Docusate Sodium [Colace] 100 mg PO BID PRN 11/20/18 [History] - CURRENT (IN HOUSE) MEDS Current Meds: Current Medications Acetaminophen (Tylenol) 975 mg PO ONETIME [facility] Stop: 11/23/18 16:00 Apixaban (Eliquis) 2.5 mg PO BID [facility]OR Bisacodyl (Dulcolax) 5 mg PO DAILY PRN PRN Reason: Constipation Morphine Sulfate 8 mg/Epinephrine HCl 0.3 mg/Cefuroxime Sodium 750 mg/Ketorolac Tromethamine 30 mg/Sodium Chloride 27.9 ml 0 mg .XX ONETIME ONE Stop: 11/23/18 08:16 Cyclobenzaprine HCl (Flexeril) 5 mg PO BID PRN PRN Reason: Spasms Docusate Sodium (Colace) 100 mg PO BID [facility] Famotidine (Pepcid) 20 mg PO Q12H [facility] Lactated Ringer's (Ringers, Lactated) 1,000 mls @ 125 mls/hr IV ASDIRECTED [facility] Stop: 11/23/18 23:00 Cefazolin Sodium/Dextrose 2 gm (/ Premix) 50 mls @ 100 mls/hr IV Q8H [facility] Stop: 11/23/18 22:59 Ketorolac Tromethamine (Toradol) 15 mg IVPUSH Q6H PRN PRN Reason: Pain Lidocaine/Sodium Bicarbonate (Buffered Lidocaine 1% In Ns 8.4%) 0.25 ml IDERM ONETIME PRN PRN Reason: Prior to IV Start Stop: 11/23/18 18:00 Morphine Sulfate (Morphine) 2 mg IVPUSH Q2H PRN PRN Reason: Breakthrough Pain Naloxone HCl (Narcan) 0.1 mg IVPUSH Q5M PRN PRN Reason: Oversedation Oxycodone HCl (Oxycontin) 10 mg PO ONETIME [facility] Stop: 11/23/18 16:00 Oxycodone/Acetaminophen (Percocet 325-5 Mg) 1 - 2 tab PO Q4H PRN PRN Reason: Pain Pregabalin (Lyrica) 50 mg PO ONETIME [facility] Stop: 11/23/18 16:00 Senna (Senna) 8.6 mg PO BID PRN PRN Reason: Constipation Sodium Chloride (Saline Flush) 10 ml FLUSH ASDIRECTED PRN PRN Reason: Keep Vein Open Stop: 11/23/18 18:00 Discontinued Medications Bupivacaine HCl (Sensorcaine-Mpf 0.25%) Confirm Administered Dose 30 ml .ROUTE .STK-MED ONE Stop: 11/23/18 06:58 Cefazolin Sodium (Ancef) Confirm Administered Dose 2 gm .ROUTE .STK-MED ONE Stop: 11/23/18 06:54 Cefazolin Sodium (Ancef) Confirm Administered Dose 2 gm .ROUTE .STK-MED ONE Stop: 11/23/18 06:58 Fentanyl (Sublimaze) Confirm Administered Dose 100 mcg .ROUTE .STK-MED ONE Stop: 11/23/18 06:54 Iodine (Iodine 2% Mild Tincture) Confirm Administered Dose 30 ml .ROUTE .STK- MED ONE Stop: 11/23/18 06:58 Propofol (Diprivan 20 Ml) Confirm Administered Dose 600 mg .ROUTE .STK-MED ONE Stop: 11/23/18 06:54 Tranexamic Acid (Cyklokapron) Confirm Administered Dose 1,000 mg .ROUTE .STK- MED ONE Stop: 11/23/18 06:58 Vancomycin HCl (Vancomycin) Confirm Administered Dose 1 gm .ROUTE .STK-MED ONE Stop: 11/23/18 06:58
[2018-11-23] MEDS ORDERED: EPINEPHrine 1 MG/1 ML Amp ONE (07:24)
[2018-11-23] MEDS ORDERED: Ropivacaine 0.5% 5 MG/ML 30 ML SDV ONE (07:24)
[2018-11-23] MEDS ORDERED: Phenylephrine/Normal Saline 100 MCG/ML 10 ML Syringe ONE (07:59)
[2018-11-23] MEDS ORDERED: ePHEDrine/Normal Saline 25 MG/5 ML Syringe ONE (08:10)
[2018-11-23] MEDS ORDERED: Ondansetron 4 MG/2 ML SDV ONE (08:14)
[2018-11-23] MEDS ORDERED: Morphine 8 MG, EPINEPHrine 0.3 MG, Cefuroxime 750 MG, Ketorolac 30 MG, Sodium Chloride ... ONE ×5 (08:15)
[2018-11-23] MEDS ORDERED: Lactated Ringers 1,000 ML ONE (08:58)
[2018-11-23] MEDS ORDERED: fentaNYL 100 MCG/2 ML SDV IVPUSH PRN (09:23)
[2018-11-23] MEDS ORDERED: diphenhydrAMINE 50 MG/ML SDV IVPUSH PRN (09:23)
--- NOTE | 2018-11-23 09:23 | PCM.POSTAN ---
POST ANESTHESIA ASSESSMENT - MENTAL STATUS Mental Status: Alert, Oriented - VITAL SIGNS Vital Signs: Last Vital Signs Temp 36.3 C 11/23/18 06:45 Pulse 81 11/23/18 06:45 Resp 16 11/23/18 06:45 BP 127/77 11/23/18 06:45 Pulse Ox 97 11/23/18 06:45 - RESPIRATORY Respiratory Status: Respiratory Rate WNL, Airway Patent, O2 Saturation Stable, Supplemental Oxygen - CARDIOVASCULAR CV Status: Pulse Rate WNL, Blood Pressure Stable - GASTROINTESTINAL GI Status: No Symptoms - PAIN Pain Score: 0 - POST OP HYDRATION Hydration Status: Adequate & Stable
--- NOTE | 2018-11-23 09:44 | PCM.SN ---
- Free Text/Narrative Note: Left selective femoral nerve block at the adductor canal for post-procedure pain control Time Out: 927 Start: 927 End: 936 Chart reviewed. Consent signed. Questions answered. Appropriate monitors applied. Time out performed. Left mid-shaft femur evaluated with ultrasound. Scanning medially femur, I was able to identify the femoral artery in the adductor canal. The saphenous nerve was lateral to the artery. The skin was prepped lateral to the ultrasound probe with chlorahexadine. The 21ga 4 insulated block needle was inserted under direct ultrasound guidance into the adductor canal. 20mL of 0.5% ropivacaine with 1:200,000 epinephrine was injected cirmcumferentially about the nerve with intermittent negative aspiration every 5mL. Patient tolerated the procedure well. No complications noted. See pictures on progress note and vital signs on nurses notes. Block completed postoperatively. Maryam Brower CRNA
[2018-11-23] MEDS ORDERED: Ketorolac 15 MG/ML SDV IVPUSH PRN (10:00)
[2018-11-23] MEDS ORDERED: Sennosides 8.6 MG Tab PO PRN ×2 (10:00→16:25)
[2018-11-23] MEDS ORDERED: Bisacodyl 5 MG Tab PO PRN ×2 (10:00→16:25)
[2018-11-23] MEDS ORDERED: Cyclobenzaprine 10 MG Tab PO PRN (10:00)
[2018-11-23] MEDS ORDERED: Naloxone 0.4 MG/ML SDV IVPUSH PRN (10:00)
[2018-11-23] MEDS ORDERED: Morphine 2 MG/ML Syringe IVPUSH PRN (10:00)
--- NOTE | 2018-11-23 10:25 | CR ---
Left knee: AP and lateral views of the left knee were obtained. Comparison: Prior left knee study of 01/26/18. Knee prosthesis is seen. Components are aligned. Underlying bony structures are intact. Soft tissue air is noted from the surgical procedure. Underlying bony structures are intact. Impression: 1. Satisfactory postoperative radiographic appearance of recently placed left knee prosthesis. Diagnostic code #2
[2018-11-23] MEDS: Acetaminophen/oxyCODONE 325-5 MG Tab PO PRN ×2 (11:56→17:26)
[2018-11-23] MEDS: ceFAZolin 2 GM in Premix Bag 1 BAG IV SCH (16:13)
[2018-11-23] MEDS ORDERED: Docusate Sodium 100 MG Cap PO PRN (16:25)
[2018-11-23] MEDS ORDERED: Magnesium Hydroxide 400 MG/5 ML Susp 30 ML Cup PO PRN (16:25)
[2018-11-23] MEDS: Docusate Sodium 100 MG Cap PO SCH (20:26)
[2018-11-23] MEDS: Famotidine 20 MG Tab PO SCH (20:26)
[2018-11-24] MEDS: ceFAZolin 2 GM in Premix Bag 1 BAG IV SCH ×2 (01:00→08:46)
[2018-11-24] MEDS: Acetaminophen/oxyCODONE 325-5 MG Tab PO PRN ×3 (01:33→12:03)
[2018-11-24] MEDS ORDERED: Pantoprazole 40 MG Tab.CR PO SCH (07:00)
--- NOTE | 2018-11-24 07:49 | PCM48HPAN ---
Post Anesthesia Note - EVALUATION WITHIN 48HRS OF ANESTHETIC Vital Signs in Normal Range: Yes Patient Participated in Evaluation: Yes Respiratory Function Stable: Yes Airway Patent: Yes Cardiovascular Function Stable: Yes Hydration Status Stable: Yes Pain Control Satisfactory: Yes Nausea and Vomiting Control Satisfactory: Yes Mental Status Recovered: Yes Vital Signs: Last Vital Signs Temp 36.4 C 11/24/18 00:47 Pulse 70 11/24/18 00:47 Resp 18 11/24/18 00:47 BP 114/56 L 11/24/18 00:47 Pulse Ox 98 11/24/18 00:47
--- NOTE | 2018-11-24 08:20 | PCM.SURGPN ---
- General Info Date of Service: 11/24/18 POD#: 1 Functional Status: Reports: Pain Controlled, Tolerating Diet, Ambulating, Urinating, Incentive Spirometry, Other (The pt states she is doing well.) - Patient Data Vitals - Most Recent: Last Vital Signs Temp 97.5 F 11/24/18 00:47 Pulse 70 11/24/18 00:47 Resp 18 11/24/18 00:47 BP 114/56 L 11/24/18 00:47 Pulse Ox 98 11/24/18 00:47 Weight - Most Recent: 222 lb 14.4 oz I&O - Last 24 Hours: Intake & Output 11/23/18 11/24/18 11/24/18 22:59 06:59 14:59 Intake Total 300 Balance 300 Lab Results Last 24 Hrs: Laboratory Results - last 24 hr 11/24/18 11/24/18 Range/Units 04:40 04:40 WBC 7.84 (3.98-10.04) K/mm3 RBC 3.84 L (3.98-5.22) M/mm3 Hgb 11.5 D (11.2-15.7) gm/L Hct 36.6 (34.1-44.9) % MCV 95.3 H (79.4-94.8) fl MCH 29.9 (25.6-32.2) pg MCHC 31.4 L (32.2-35.5) g/dl RDW Std Deviation 48.5 H (36.4-46.3) fL Plt Count 130 L (182-369) K/mm3 MPV 11.0 (9.4-12.3) fl Sodium 137 (136-145) mEq/L Potassium 4.8 (3.5-5.1) mEq/L Chloride 102 (98-107) mEq/L Carbon Dioxide 25 (21-32) mEq/L Anion Gap 14.8 (5-15) BUN 20 H (7-18) mg/dL Creatinine 1.0 (0.55-1.02) mg/dL Est Cr Clr Drug Dosing 43.40 mL/min Estimated GFR (MDRD) 54 (>60) mL/min BUN/Creatinine Ratio 20.0 H (14-18) Glucose 122 H (83-115) mg/dL Calcium 9.0 (8.5-10.1) mg/dL Total Bilirubin 0.4 (0.2-1.0) mg/dL AST 19 (15-37) U/L ALT 19 (14-59) U/L Alkaline Phosphatase 62 (46-116) U/L Total Protein 6.1 L (6.4-8.2) g/dl Albumin 3.0 L (3.4-5.0) g/dl Globulin 3.1 gm/dL Albumin/Globulin Ratio 1.0 (1-2) Med Orders - Current: Current Medications Apixaban (Eliquis) 2.5 mg PO BID [facility] Bisacodyl (Dulcolax) 5 mg PO DAILY PRN PRN Reason: Constipation Cholecalciferol (Vitamin D3) 5,000 unit PO DAILY [facility] Cyclobenzaprine HCl (Flexeril) 5 mg PO BID PRN PRN Reason: Spasms Docusate Sodium (Colace) 100 mg PO BID [facility] Last Admin: 11/23/18 20:26 Dose: 100 mg Famotidine (Pepcid) 20 mg PO Q12H [facility] Last Admin: 11/23/18 20:26 Dose: 20 mg Cefazolin Sodium/Dextrose 2 gm (/ Premix) 50 mls @ 100 mls/hr IV Q8H [facility] Stop: 11/24/18 08:29 Last Admin: 11/24/18 01:00 Dose: 100 mls/hr Ketorolac Tromethamine (Toradol) 15 mg IVPUSH Q6H PRN PRN Reason: Pain Losartan Potassium (Cozaar) 50 mg PO DAILY [facility] Magnesium Hydroxide (Milk Of Magnesia) 30 ml PO BID PRN PRN Reason: Constipation Morphine Sulfate (Morphine) 2 mg IVPUSH Q2H PRN PRN Reason: Breakthrough Pain Naloxone HCl (Narcan) 0.1 mg IVPUSH Q5M PRN PRN Reason: Oversedation Oxycodone/Acetaminophen (Percocet 325-5 Mg) 1 - 2 tab PO Q4H PRN PRN Reason: Pain Last Admin: 11/24/18 07:20 Dose: 1 tab Pantoprazole Sodium (Protonix) 40 mg PO DAILY@0700 [facility] Last Admin: 11/24/18 06:47 Dose: 40 mg Senna (Senna) 8.6 mg PO BID PRN PRN Reason: Constipation Discontinued Medications Acetaminophen (Tylenol) 975 mg PO ONETIME TOR Stop: 11/23/18 16:00 Last Admin: 11/23/18 07:03 Dose: 975 mg Bisacodyl (Dulcolax) 5 mg PO DAILY PRN PRN Reason: Constipation Bupivacaine HCl (Sensorcaine-Mpf 0.25%) Confirm Administered Dose 30 ml .ROUTE .STK-MED ONE Stop: 11/23/18 06:58 Last Admin: 11/23/18 08:41 Dose: 30 ml Cefazolin Sodium (Ancef) Confirm Administered Dose 2 gm .ROUTE .STK-MED ONE Stop: 11/23/18 06:54 Last Admin: 11/23/18 08:40 Dose: 2 gm Cefazolin Sodium (Ancef) Confirm Administered Dose 2 gm .ROUTE .STK-MED ONE Stop: 11/23/18 06:58 Morphine Sulfate 8 mg/Epinephrine HCl 0.3 mg/Cefuroxime Sodium 750 mg/Ketorolac Tromethamine 30 mg/Sodium Chloride 27.9 ml 0 mg .XX ONETIME ONE Stop: 11/23/18 08:16 Last Admin: 11/23/18 08:41 Dose: 788.3 mg Diphenhydramine HCl (Benadryl) 25 mg IVPUSH Q6H PRN PRN Reason: itching Stop: 11/23/18 16:00 Docusate Sodium (Colace) 100 mg PO BID PRN PRN Reason: Constipation Ephedrine Sulfate (Ephedrine In Ns) Confirm Administered Dose 25 mg .ROUTE .STK- MED ONE Stop: 11/23/18 08:11 Epinephrine HCl (Adrenalin) Confirm Administered Dose 1 mg .ROUTE .STK-MED ONE Stop: 11/23/18 07:25 Fentanyl (Sublimaze) Confirm Administered Dose 100 mcg .ROUTE .STK-MED ONE Stop: 11/23/18 06:54 Fentanyl (Sublimaze) 50 mcg IVPUSH Q5M PRN PRN Reason: pain Stop: 11/23/18 12:00 Lactated Ringer's (Ringers, Lactated) 1,000 mls @ 125 mls/hr IV ASDIRECTED TOR Stop: 11/23/18 23:00 Lactated Ringer's (Ringers, Lactated) Confirm Administered Dose 1,000 mls @ as directed .ROUTE .STK-MED ONE Stop: 11/23/18 08:59 Iodine (Iodine 2% Mild Tincture) Confirm Administered Dose 30 ml .ROUTE .STK- MED ONE Stop: 11/23/18 06:58 Last Admin: 11/23/18 08:38 Dose: 18 ml Lidocaine/Sodium Bicarbonate (Buffered Lidocaine 1% In Ns 8.4%) 0.25 ml IDERM ONETIME PRN PRN Reason: Prior to IV Start Stop: 11/23/18 18:00 Non-Formulary Medication (Triamcinolone Acetonide [Nasacort]) 1 dose NASBOTH DAILY [facility] Ondansetron HCl (Zofran) Confirm Administered Dose 4 mg .ROUTE .STK-MED ONE Stop: 11/23/18 08:15 Oxycodone HCl (Oxycontin) 10 mg PO ONETIME [facility] Stop: 11/23/18 16:00 Last Admin: 11/23/18 07:03 Dose: 10 mg Phenylephrine HCl (Phenylephrine In Ns 100 Mcg/Ml) Confirm Administered Dose 1 mg .ROUTE .STK-MED ONE Stop: 11/23/18 08:00 Pregabalin (Lyrica) 50 mg PO ONETIME [facility] Stop: 11/23/18 16:00 Last Admin: 11/23/18 07:03 Dose: 50 mg Propofol (Diprivan 20 Ml) Confirm Administered Dose 600 mg .ROUTE .STK-MED ONE Stop: 11/23/18 06:54 Ropivacaine (Naropin 0.5%) Confirm Administered Dose 30 ml .ROUTE .STK-MED ONE Stop: 11/23/18 07:25 Senna (Senna) 8.6 mg PO BID PRN PRN Reason: Constipation Sodium Chloride (Saline Flush) 10 ml FLUSH ASDIRECTED PRN PRN Reason: Keep Vein Open Stop: 11/23/18 18:00 Tranexamic Acid (Cyklokapron) Confirm Administered Dose 1,000 mg .ROUTE .STK- MED ONE Stop: 11/23/18 06:58 Last Admin: 11/23/18 08:50 Dose: 1,000 mg Vancomycin HCl (Vancomycin) Confirm Administered Dose 1 gm .ROUTE .STK-MED ONE Stop: 11/23/18 06:58 Vancomycin HCl (Vancomycin) Confirm Administered Dose 1 gm .ROUTE .STK-MED ONE Stop: 11/23/18 07:37 Last Admin: 11/23/18 08:45 Dose: 1 gm - Exam Wound/Incisions: Dressing Dry and Intact General: Alert, Cooperative, No Acute Distress Lungs: Normal Respiratory Effort Extremities: Other (NVS intact for BLE. Bryce's negative. ) - Problem List Review Problem List Initiated/Reviewed/Updated: Yes - My Orders Last 24 Hours: Active Orders 24 hr Category Date Time Status Cooling Warming Measures [RC] ASDIRECTED Care 11/23/18 09:23 Inactive Notify Provider [RC] ASDIRECTED Care 11/23/18 09:23 Active Pulse Oximetry [RC] ASDIRECTED Care 11/23/18 09:23 Active Ready for Discharge [RC] PER UNIT ROUTINE Care 11/24/18 08:18 Ordered Regular Diet [DIET] Diet 11/23/18 Lunch Active Acetaminophen/oxyCODONE [Percocet 325-5 MG] Med 11/23/18 10:00 Active 1 - 2 tab PO Q4H PRN Apixaban [Eliquis] Med 11/24/18 09:00 Active 2.5 mg PO BID Bisacodyl [Dulcolax] Med 11/23/18 10:00 Active 5 mg PO DAILY PRN Cholecalciferol (Vitamin D3) [Vitamin D3] Med 11/24/18 09:00 Active 5,000 unit PO DAILY Cyclobenzaprine [Flexeril] Med 11/23/18 10:00 Active 5 mg PO BID PRN Docusate Sodium [Colace] Med 11/23/18 21:00 Active 100 mg PO BID Famotidine [Pepcid] Med 11/23/18 21:00 Active 20 mg PO Q12H Ketorolac [Toradol] Med 11/23/18 10:00 Active 15 mg IVPUSH Q6H PRN Losartan [Cozaar] Med 11/24/18 09:00 Active 50 mg PO DAILY Magnesium Hydroxide [Milk of Magnesia] Med 11/23/18 16:25 Active 30 ml PO BID PRN Morphine Med 11/23/18 10:00 Active 2 mg IVPUSH Q2H PRN Naloxone [Narcan] Med 11/23/18 10:00 Active 0.1 mg IVPUSH Q5M PRN Pantoprazole [ProTONIX] Med 11/24/18 07:00 Active 40 mg PO DAILY@0700 Sennosides [Senna] Med 11/23/18 16:25 Active 8.6 mg PO BID PRN ceFAZolin [Ancef] 2 gm Med 11/23/18 16:00 Active Premix Bag 1 bag IV Q8H Medication Orders Apixaban (Eliquis) 2.5 mg PO BID [facility] Bisacodyl (Dulcolax) 5 mg PO DAILY PRN PRN Reason: Constipation Cholecalciferol (Vitamin D3) 5,000 unit PO DAILY [facility] Cyclobenzaprine HCl (Flexeril) 5 mg PO BID PRN PRN Reason: Spasms Docusate Sodium (Colace) 100 mg PO BID [facility] Last Admin: 11/23/18 20:26 Dose: 100 mg Famotidine (Pepcid) 20 mg PO Q12H [facility] Last Admin: 11/23/18 20:26 Dose: 20 mg Cefazolin Sodium/Dextrose 2 gm (/ Premix) 50 mls @ 100 mls/hr IV Q8H [facility] Stop: 11/24/18 08:29 Last Admin: 11/24/18 01:00 Dose: 100 mls/hr Infusion: 11/23/18 16:43 Dose: 100 mls/hr Admin: 11/23/18 16:13 Dose: 100 mls/hr Ketorolac Tromethamine (Toradol) 15 mg IVPUSH Q6H PRN PRN Reason: Pain Losartan Potassium (Cozaar) 50 mg PO DAILY [facility] Magnesium Hydroxide (Milk Of Magnesia) 30 ml PO BID PRN PRN Reason: Constipation Morphine Sulfate (Morphine) 2 mg IVPUSH Q2H PRN PRN Reason: Breakthrough Pain Naloxone HCl (Narcan) 0.1 mg IVPUSH Q5M PRN PRN Reason: Oversedation Oxycodone/Acetaminophen (Percocet 325-5 Mg) 1 - 2 tab PO Q4H PRN PRN Reason: Pain Last Admin: 11/24/18 07:20 Dose: 1 tab Admin: 11/24/18 01:33 Dose: 1 tab Admin: 11/23/18 17:26 Dose: 2 tab Admin: 11/23/18 11:56 Dose: 1 tab Pantoprazole Sodium (Protonix) 40 mg PO DAILY@0700 [facility] Last Admin: 09/10/19 06:47 Dose: 40 mg Senna (Senna) 8.6 mg PO BID PRN PRN Reason: Constipation - Assessment Assessment (Free Text/Narrative):: POD#1 - left TKA - Plan Plan (Free Text/Narrative):: 1. Hgb 11.5. 2. Eliquis PO BID, frequent mobility, TEDs. 3. Outpatient therapy. 4. Discharge to home today. The pt's case was discussed with Dr. Shine.
[2018-11-24] MEDS: Docusate Sodium 100 MG Cap PO SCH (08:59)
[2018-11-24] MEDS ORDERED: Cholecalciferol (Vitamin D3) 5,000 UNIT Tab PO SCH (09:00)
[2018-11-24] MEDS ORDERED: Apixaban 2.5 MG Tab PO SCH (09:00)
[2018-11-24] MEDS ORDERED: TRIAMCINOLONE ACETONIDE NASBOTH SCH (09:00)
[2018-11-24] MEDS ORDERED: Losartan 100 MG Tab PO SCH (09:00)
[2018-11-24] MEDS: Famotidine 20 MG Tab PO SCH (09:00)
--- NOTE | 2018-11-27 11:01 | PCM.OPNOTE ---
- General Post-Op/Procedure Note Date of Surgery/Procedure: 11/23/18 Operative Procedure(s): left total knee arthroplasty Pre Op Diagnosis: left knee osteoarthrosis Post-Op Diagnosis: Same Anesthesia Technique: Local, MAC, Spinal Primary Surgeon: Eugene Shine Anesthesia Provider: Leilani Gordon Feeder Associate: Heaven Miranda Feeder Associate: Hailee Ferrell in mLs: 5 Complications: None Condition: Good Free Text/Narrative:: size 4/4 cemented 9mm 32x10
--- NOTE | 2018-11-27 11:40 | OR ---
DATE OF OPERATION: 11/23/2018 SURGEON: Eugene Shine MD OPERATION PERFORMED: Left total knee arthroplasty. PREOPERATIVE DIAGNOSIS: Left knee osteoarthrosis. POSTOPERATIVE DIAGNOSIS: Left knee osteoarthrosis. ANESTHESIA: Local MAC with spinal. ANESTHESIA PROVIDER: Leilani Gordon. ASSISTANTS: 1. Heaven Miranda PA-C. 2. Hailee Ferrell LPN. ESTIMATED BLOOD LOSS: 5 mL. COMPLICATIONS: None. CONDITION: Stable. IMPLANTS: 1. Scroggins size 4 cemented PS femur. 2. Marine size 4 cemented Premont tibial baseplate. 3. Marine size 4, 9 mm PS X3 polyethylene. 4. Scroggins size 32 x 10 mm cemented asymmetric patella. DESCRIPTION OF PROCEDURE: The patient was identified in the preop holding area. Proper site was marked and identified by the surgeon. The patient was taken back to the operating theater. After adequate anesthesia, the patient's left lower extremity had a nonsterile tourniquet applied and it was sterilely prepped and draped in the usual sterile fashion. OR time-out was performed. The patient received 2 g IV Ancef. At this time, the left lower extremity was exsanguinated. Tourniquet was insufflated to 300 mmHg. Standard medial parapatellar incision was made. Medial parapatellar arthrotomy was created. Deep fibers of the MCL were raised and anterior fat pad was resected. At this time, attention was turned to the patella. Patella measured 24, it was resected to a 14 for 32 x 10 mm patella. Drill holes were then drilled and found to be in adequate position. The drill was then drilled in the distal femur and the intramedullary distal femoral cutting guide was then placed. 8 mm was resected off the distal femur and was found to be an adequate resection. Sizing guide was placed. It was found to be a Scroggins size 4 cemented PS femur that was shown on the implant record at the beginning of this dictation. The drill holes were drilled for the epicondylar axis using Whitesides line and epicondyles as reference. At this time, the 4-in - 1 cutting block was placed. An anterior posterior and anterior and posterior chamfer cuts were then completed. Box cut was then completed at this time. Attention was turned to the tibia. The posterior medial lateral retractors were placed. The extramedullary tibial guide was placed. It was placed in the old footprint of the ACL. It was aligned with the center of the ankle and 0 degrees of slope, 9 mm was then resected off the unaffected side. There was found to be an acceptable reduction. At this time, posterior osteophytes were removed along with medial and lateral meniscus. A trial implant was placed with a correct sized tibia that was mentioned at the beginning of the dictation. A Marine size 4, 9 mm PS X3 polyethylene insert was then placed. The patient's knee was brought through range of motion. The patella was tracking centrally and was stable to varus and valgus stress. Alignment was found to be roughly at 0 degrees. The tibia was stamped and drilled in proper rotation. The universal tibial base plate was impacted in place. Next, the Scroggins size 4 cemented PS femur impacted into place and the Marine size 4, 9 mm PS X3 polyethylene insert was placed. Excess cement was removed. The patient's knee was brought into full extension. The patella was then cemented in place at this time. One liter dilute Betadine solution was irrigated through the knee along with 3 L of pulse lavage irrigation with Ancef. Periarticular injection was then completed. The patient's knee was brought through a range of motion. Once the cement had time to set up and it was found to be stable to varus valgus stress, the patella was tracking centrally with full range of motion. At this time, a #2 barbed suture was used for closure of the medial parapatellar arthrotomy. Topical tranexamic acid was placed. 2-0 Vicryl was used subcutaneously, Prineo was used for the skin. The patient tolerated the procedure well and was sent to the PACU in stable condition. DEAN /[id number] SANDI
== END 2018-11-24 12:38 | disposition home or self-care (01) ==
LOC: JD.SDS 06:37 → JD.MS 06:40 → JD.SDS 11-24 12:38
PROVIDERS: ATTEND Orthopaedic Surgery
DX: M17.12 Unilateral primary osteoarthritis, left knee (principal); I10 Essential (primary) hypertension; I83.93 Asymptomatic varicose veins of bilateral lower extremities; K21.9 Gastro-esophageal reflux disease without esophagitis; D68.51 Activated protein C resistance; G89.18 Other acute postprocedural pain; Z96.651 Presence of right artificial knee joint; Z79.899 Other long term (current) drug therapy
CPT/HCPCS: 27447; 36415; 64447; 73560; 80053; 85027; 87641; 97110; 97116; 97161; 97165; 97535; A9270; C1713; C1776; J0171; J0690; J0697; J1885; J2270; J2370; J2405; J2704; J2795; J3010; J3370; J3490; J7050; J7120; 01402; 64450

== ENCOUNTER 2024-11-15 13:09 | Emergency (ER) | payer MEDICARE, OTHER ==
[2024-11-15 14:25] LABS: BASOPHILS ABSOLUTE AUTO 0.0 K/mm3 (0.0-0.2); BASOPHILS PERCENT AUTO 0.5 % (0.0-1.0); EOSINOPHILS ABSOLUTE AUTO 0.1 K/mm3 (0.0-0.4); EOSINOPHILS PERCENT AUTO 1.3 % (0.0-6.0); IMMATURE GRAN ABSOLUTE AUTO 0.02 K/mm3 (0.00-0.05); IMMATURE GRAN PERCENT AUTO 0.2 % (0.0-0.4); LYMPHOCYTES ABSOLUTE AUTO 1.9 K/mm3 (1.0-4.8); LYMPHOCYTES PERCENT AUTO 21.6 % (24.0-44.0); MEAN PLATELET VOLUME 10.9 fl (9.4-12.3); MONOCYTES ABSOLUTE AUTO 0.7 K/mm3 (0.0-0.8); MONOCYTES PERCENT AUTO 7.8 % (0.0-8.0); NEUTROPHILS ABSOLUTE AUTO 6.0 K/mm3 (1.8-7.7); NEUTROPHILS PERCENT AUTO 68.6 % (41.0-71.0); NRBC ABSOLUTE 0.00 (0.00-0.02); NRBC PERCENT 0.0 % (0.0-0.2); PLATELET COUNT,PLT 155 K/mm3 (150-400); RED BLOOD CELL COUNT 4.73 M/mm3 (4.10-5.30); WHITE BLOOD CELL COUNT,WBC 8.80 K/mm3 (3.9-11.3)
[2024-11-15 14:47] LABS: A/G RATIO 1.1 (1-2); ALANINE AMINOTRANSFERASE,ALT 21.0 U/L (14-59); ASPARTATE AMNIOTRANSFERASE,AST 18.0 U/L (15-37); BILIRUBIN TOTAL 0.5 mg/dL (0.2-1.0); BLOOD UREA NITROGEN,BUN 22.0 mg/dL (7-18); CARBON DIOXIDE,CO2 25.0 mEq/L (21-32); CHLORIDE,CL 106.0 mEq/L (98-107); CREATININE 0.9 mg/dL (0.55-1.02); EST CRCL DRUG DOSING (CG) 45.25 mL/min; ESTIMATED GFR 63.0 mL/min (>60); GLUCOSE RANDOM 110.0 mg/dL (70-99); POTASSIUM,K 4.4 mEq/L (3.5-5.1); PROTEIN TOTAL,TP 6.8 g/dl (6.4-8.2); SODIUM,NA 140.0 mEq/L (136-145)
[2024-11-15 15:53] LABS: GLUCOSE,URINE NEGATIVE (Negative); OCCULT BLOOD,URINE NEGATIVE (Negative)
[2024-11-15 16:01] LABS: APPEARANCE,URINE SLT CLOUDY (Clear)
[2024-11-15 16:03] LABS: SQUAMOUS EPITHELIAL CELLS,UR 0-5 /hpf (0-5)
== END 2024-11-15 17:20 | disposition home or self-care (01) ==
LOC: JD.ED 13:09
DX: E86.9 Volume depletion, unspecified (principal); N30.01 Acute cystitis with hematuria; I10 Essential (primary) hypertension; K21.9 Gastro-esophageal reflux disease without esophagitis; Z79.899 Other long term (current) drug therapy
CPT/HCPCS: 36415; 80053; 81001; 83735; 85025; 87086; 93005; 96361; 96374; 99284; J0696; J7030